=== PATIENT | male | born 1950 | race Caucasian/White ===

== ENCOUNTER 2017-02-28 18:46 | Inpatient (IN) | payer MEDICARE ==
[~2017-02-28] VITALS: Ht 172.7 cm; Wt 72.4 kg
[2017-02-28] MEDS: POTASSIUM CHLORIDE 10 MEQ TABCR PO SCH (00:45)
[2017-02-28] MEDS: NAPROXEN 250 MG TAB PO SCH (03:45)
[~2017-02-28 18:46] MED LIST: AMLODIPINE BESYL5 MG PO; ASPIR 8181 MG PO; CALCIUM500 M1 PO; LASIX40 MG PO; MORPHINE SULFAT15 MG PO; MORPHINE SULFAT30 M2 PO; NAPROXEN250 MG PO; OMEPRAZOLE40 MG PO; POTASSIUM CHLO10 ME1 PO; SPIRIVA18 MCG INH; STOOL SOFTENER50 MG PO; TAMSULOSIN HCL0.4 MG PO; VITAMIN E400 UNI1 PO
[2017-02-28] MEDS ORDERED: ZINC SULFATE220 MG PO (19:31)
[2017-02-28] MEDS ORDERED: CLONIDINE HCL0.2 MG PO (19:31)
[2017-02-28] MEDS ORDERED: VENLAFAXINE HC150 MG PO (19:31)
[2017-02-28] MEDS ORDERED: DOK100 MG PO (19:31)
[2017-02-28] MEDS ORDERED: PROAIR HFA INH8.5 GM INH (19:31)
[2017-02-28] MEDS ORDERED: ASCORBIC ACID500 MG PO (19:31)
[2017-02-28] MEDS ORDERED: ALBUTEROL SULF 0.083% NEB SOLN 3 ML NEB NEB STA (20:01)
[2017-02-28] MEDS ORDERED: IPRATROPIUM BROMIDE 0.02% 2.5 ML NEB NEB ONE (20:15)
[2017-02-28] MEDS ORDERED: METHYLPREDNISOLONE SOD SUCC 125 MG/2ML VIAL IV ONE (20:15)
[2017-02-28 20:19] LABS: BASOPHILS # (AUTO) 0.1 (0.0-0.1); BASOPHILS % 0.3 % (0.0-1.0); EOSINOPHILS # (AUTO) 0.2 (0.0-0.4); EOSINOPHILS % 1.5 % (0.0-6.0); HEMATOCRIT 41.1 % (38.2-49.6); HEMOGLOBIN 13.2 g/dL (14.0-18.0); LYMPHOCYTES # (AUTO) 2.5 (1.0-3.2); LYMPHOCYTES % 15.9 % (18.0-39.1); MEAN CORPUSCULAR HEMOGLOBIN 28.3 pg (28-32); MEAN CORPUSCULAR HGB CONC 32.1 g/dL (31-35); MEAN CORPUSCULAR VOLUME 88.2 fL (81-99); MONOCYTES # (AUTO) 1.2 (0.2-0.8); MONOCYTES % 7.5 % (4.4-11.3); NEUTROPHILS # (AUTO) 11.5 (2.1-6.9); NEUTROPHILS % 73.3 % (38.7-80.0); PLATELET COUNT 341 x10e3/uL (140-360); RED BLOOD COUNT 4.66 x10e6/uL (4.3-5.7); RED CELL DISTRIBUTION WIDTH 18.5 % (11.7-14.4)
[2017-02-28] MEDS: SODIUM CHLORIDE 0.9% 1000ML 1,000 ML IV SCH (20:31)
[2017-02-28 20:38] LABS: ALANINE AMINOTRANSFERASE 35 IU/L (0-55); ALBUMIN 2.9 g/dL (3.5-5.0); ALBUMIN/GLOBULIN RATIO 0.9 (0.8-2.0); ALKALINE PHOSPHATASE 74 IU/L (40-150); ANION GAP 12.7 mmol/L (8-16); BLOOD UREA NITROGEN 18 mg/dL (7-26); BUN/CREATININE RATIO 28 (6-25); CALCIUM 8.4 mg/dL (8.4-10.2); CARBON DIOXIDE 28 mmol/L (22-29); CHLORIDE 104 mmol/L (98-107); CREATININE, SERUM 0.65 mg/dL (0.72-1.25); EST GLOMERULAR FILTRATION RATE > 60 ML/MIN (60-); GLUCOSE 91 mg/dL (74-118); POTASSIUM 3.7 mmol/L (3.5-5.1); SODIUM 141 mmol/L (136-145)
--- NOTE | 2017-02-28 20:38 | Diagnostic Imaging Report ---
EXAMINATION: CHEST SINGLE (PORTABLE) 02/28/2017 7:14 PM COMPARISON: CT of the chest from 06/01/2016 INDICATION: Shortness of breath DISCUSSION: LINES: None. LUNGS: Emphysema. No focal consolidation. The lung nodules described on prior CT are not well visualized. PLEURA: No pleural effusion or pneumothorax. HEART AND MEDIASTINUM: The cardiomediastinal silhouette is unremarkable. BONES AND SOFT TISSUES: Old posttraumatic deformity of the right proximal humerus.. The soft tissues are normal. IMPRESSION: Emphysema. No focal consolidation. The pulmonary nodules described on prior chest CT are not visualized. Please refer to follow-up recommendations in that report. Isaias Howard MD Signed by: Dr. Isaias Howard M.D. on 02/28/2017 8:34 PM
[2017-02-28 20:46] LABS: CREATINE KINASE MB 4.1 ng/mL (0.00-5.00); TROPONIN I 0.012 ng/mL (0-0.300)
[2017-02-28] MEDS ORDERED: SODIUM CHLORIDE FLUSH 10 ML SYR INJ PRN (22:15)
[2017-02-28] MEDS ORDERED: CEFTRIAXONE SOD 1 GM VIAL IV SCH (22:15)
[2017-02-28] MEDS: ALBUTEROL/IPRATROPIUM 3 ML NEB NEB SCH (23:00)
[2017-02-28] MEDS: CEFTRIAXONE SOD 1 GM/NS 50 ML 50 ML IV SCH (23:03)
[2017-02-28] MEDS: AZITHROMYCIN 250 MG TAB PO SCH (23:03)
[2017-03-01] VITALS (7 sets, daily range): BP systolic 111–159; BP diastolic 59–85
[2017-03-01] MEDS: METHYLPREDNISOLONE SOD SUCC 40 MG/ML VIAL IV SCH ×3 (00:19→12:18)
[2017-03-01] MEDS: MORPHINE SULFATE 15MG TAB CR PO SCH (00:19)
[2017-03-01] MEDS: CLONIDINE HCL 0.2 MG TAB PO SCH ×6 (02:00→22:00)
[2017-03-01] MEDS: SODIUM CHLORIDE 0.9% 1000ML 1,000 ML IV SCH ×2 (02:15→22:09)
[2017-03-01] MEDS: ALBUTEROL/IPRATROPIUM 3 ML NEB NEB SCH ×5 (03:00→19:15)
[2017-03-01] MEDS ORDERED: ADVAIR 250-501 EACH (04:28)
[2017-03-01] MEDS ORDERED: PANTOPRAZOLE SO40 MG PO (04:28)
[2017-03-01] MEDS ORDERED: VITAMIN B-1100 M1 PO (04:30)
[2017-03-01] MEDS ORDERED: ANORO ELLIPTA INH (04:37)
[2017-03-01] MEDS: NAPROXEN 250 MG TAB PO SCH ×3 (05:24→21:30)
[2017-03-01 06:05] LABS: BASOPHILS % 0.1 % (0.0-1.0); HEMATOCRIT 34.3 % (38.2-49.6); HEMOGLOBIN 11.2 g/dL (14.0-18.0); LYMPHOCYTES # (AUTO) 0.4 (1.0-3.2); LYMPHOCYTES % 3.6 % (18.0-39.1); MEAN CORPUSCULAR HEMOGLOBIN 28.8 pg (28-32); MEAN CORPUSCULAR HGB CONC 32.7 g/dL (31-35); MEAN CORPUSCULAR VOLUME 88.2 fL (81-99); MONOCYTES % 0.3 % (4.4-11.3); NEUTROPHILS # (AUTO) 11.2 (2.1-6.9); NEUTROPHILS % 94.7 % (38.7-80.0); PLATELET COUNT 301 x10e3/uL (140-360); RED BLOOD COUNT 3.89 x10e6/uL (4.3-5.7); RED CELL DISTRIBUTION WIDTH 18.6 % (11.7-14.4)
[2017-03-01 06:33] LABS: ANION GAP 11.2 mmol/L (8-16); BLOOD UREA NITROGEN 15 mg/dL (7-26); BUN/CREATININE RATIO 23 (6-25); CALCIUM 8.2 mg/dL (8.4-10.2); CARBON DIOXIDE 24 mmol/L (22-29); CHLORIDE 109 mmol/L (98-107); CREATINE KINASE 38 IU/L (30-200); CREATININE, SERUM 0.66 mg/dL (0.72-1.25); EST GLOMERULAR FILTRATION RATE > 60 ML/MIN (60-); GLUCOSE 196 mg/dL (74-118); POTASSIUM 4.2 mmol/L (3.5-5.1); SODIUM 140 mmol/L (136-145)
[2017-03-01 06:45] LABS: TROPONIN I 0.022 ng/mL (0-0.300)
[2017-03-01] MEDS ORDERED: DOCUSATE SODIUM PO SCH (09:00)
[2017-03-01] MEDS: MORPHINE SULFATE 30 MG TAB ER PO PRN ×2 (09:05→23:26)
[2017-03-01] MEDS: FUROSEMIDE 40 MG TAB PO SCH (09:38)
[2017-03-01] MEDS: ASPIRIN 81 MG CHEW TAB PO SCH (09:38)
[2017-03-01] MEDS: VENLAFAXINE HCL 75 MG CAPCR PO SCH (09:38)
[2017-03-01] MEDS: POTASSIUM CHLORIDE 10 MEQ TABCR PO SCH (09:38)
[2017-03-01] MEDS: TAMSULOSIN HCL 0.4 MG CAP PO SCH (09:38)
[2017-03-01] MEDS: DOCUSATE SODIUM 100 MG CAP PO SCH ×2 (09:38→17:10)
[2017-03-01] MEDS: CALCIUM CARBONATE 500 MG CHEWABLE TABS PO SCH (09:39)
[2017-03-01] MEDS: ZINC SULFATE 220 MG CAP PO SCH (09:39)
[2017-03-01] MEDS: ASCORBIC ACID 500 MG TAB PO SCH ×2 (09:39→17:10)
[2017-03-01] MEDS: AMLODIPINE BESYLATE 5 MG TAB PO SCH (09:39)
[2017-03-01] MEDS: PANTOPRAZOLE SOD 40 MG TABEC PO SCH (09:39)
[2017-03-01 16:15] LABS: CREATINE KINASE MB 4.6 ng/mL (0.00-5.00); TROPONIN I 0.02 ng/mL (0-0.300)
--- NOTE | 2017-03-01 16:29 | History and Physical ---
HISTORY OF PRESENT ILLNESS: A patient of Dr. Huerta. A charming but unfortunate 67-year-old gentleman admitted with shortness of breath. History of multiple falls. History of hip replacement, shoulder surgery a year ago. Lives alone. Has chronic back pain. Does have some home health, says it is so far inadequate. FAMILY HISTORY: Positive for cancer of the breast. SOCIAL HISTORY: Smoked and drank in the past. Drugs in the past. PAST MEDICAL HISTORY: History of hepatitis and cirrhosis. ALLERGIES: NO KNOWN ALLERGIES. MEDICATIONS: His medications at home include ProAir, amlodipine, vitamin C, aspirin, calcium carbonate, clonidine, Colace, Advair, Lasix, warfarin, Naprosyn, Prilosec, Protonix, potassium, Flomax, thiamine, Spiriva, venlafaxine, vitamin E, zinc and Anoro. PHYSICAL EXAMINATION: GENERAL: He is currently in no acute distress, looks somewhat older than his stated age, with a history of being born in [place], [place]. VITAL SIGNS: Temperature 98.6, pulse 91, respirations 19, blood pressure 121/51. HEAD: Normocephalic, atraumatic. EYES: Extraocular movements intact. LUNGS: Diminished breath sounds. Barrel chest. BACK: Complaining of back pain. HEART: Regular rhythm. ABDOMEN: Nontender. EXTREMITIES: Nonedematous. IMPRESSION: One of 1. History of pulmonary nodules. 2. Cirrhosis. 3. Chronic obstructive pulmonary disease. 4. Scoliosis. 5. Chronic pain. PLAN: Mobilization. Therapy of acute exacerbation of COPD. Followup CT scan in view of his nodules, which were discovered approximately 6 months ago. Patient does have home oxygen. Thank you for this kind referral. Job#: [id number] EV
[2017-03-01] MEDS ORDERED: METHYLPREDNISOLONE SOD SUCC 40 MG/ML VIAL IV SCH (21:00)
[2017-03-01] MEDS: TIOTROPIUM 18 MCG INH POWDER INH SCH (21:00)
[2017-03-01] MEDS: HEPARIN SOD (PORCINE) 5,000 UNIT/ML VIAL SC SCH (21:30)
[2017-03-01] MEDS: AZITHROMYCIN 250 MG TAB PO SCH (22:10)
[2017-03-01] MEDS: CEFTRIAXONE SOD 1 GM/NS 50 ML 50 ML IV SCH (23:10)
[2017-03-02] VITALS: BP 137/69
[2017-03-02] MEDS: ALBUTEROL/IPRATROPIUM 3 ML NEB NEB SCH ×7 (00:17→19:08)
[2017-03-02] MEDS: CLONIDINE HCL 0.2 MG TAB PO SCH ×6 (02:00→22:00)
[2017-03-02] MEDS: SODIUM CHLORIDE 0.9% 1000ML 1,000 ML IV SCH ×2 (02:15→16:12)
[2017-03-02 04:00] VITALS: BP 134/73
[2017-03-02] MEDS: MORPHINE SULFATE 15MG TAB CR PO SCH ×6 (05:38→18:20)
[2017-03-02] MEDS: NAPROXEN 250 MG TAB PO SCH ×3 (05:50→21:25)
[2017-03-02 06:04] LABS: BASOPHILS % 0.1 % (0.0-1.0); HEMATOCRIT 32.1 % (38.2-49.6); HEMOGLOBIN 10.5 g/dL (14.0-18.0); LYMPHOCYTES # (AUTO) 0.8 (1.0-3.2); LYMPHOCYTES % 3.7 % (18.0-39.1); MEAN CORPUSCULAR HEMOGLOBIN 28.8 pg (28-32); MEAN CORPUSCULAR HGB CONC 32.7 g/dL (31-35); MEAN CORPUSCULAR VOLUME 88.2 fL (81-99); MONOCYTES # (AUTO) 0.8 (0.2-0.8); MONOCYTES % 3.8 % (4.4-11.3); NEUTROPHILS # (AUTO) 18.4 (2.1-6.9); NEUTROPHILS % 91.4 % (38.7-80.0); PLATELET COUNT 294 x10e3/uL (140-360); RED BLOOD COUNT 3.64 x10e6/uL (4.3-5.7); RED CELL DISTRIBUTION WIDTH 18.9 % (11.7-14.4)
[2017-03-02 06:31] LABS: ANION GAP 8.9 mmol/L (8-16); BLOOD UREA NITROGEN 18 mg/dL (7-26); BUN/CREATININE RATIO 30 (6-25); CALCIUM 8.1 mg/dL (8.4-10.2); CARBON DIOXIDE 28 mmol/L (22-29); CHLORIDE 108 mmol/L (98-107); CREATININE, SERUM 0.61 mg/dL (0.72-1.25); EST GLOMERULAR FILTRATION RATE > 60 ML/MIN (60-); GLUCOSE 144 mg/dL (74-118); POTASSIUM 3.9 mmol/L (3.5-5.1); SODIUM 141 mmol/L (136-145)
--- NOTE | 2017-03-02 07:27 | Diagnostic Imaging Report ---
CT scan chest. March 02, 2017 Clinical history: Pulmonary nodules Technique: Routine volumetric CT chest. No intravenous or enteric contrast. Coronal, sagittal and axial images generated from source data. Dose: 549.57 mGy-cm Comparison: June 01, 2016 Findings: Lungs: Severe centrilobular emphysema worse in the upper lung zones. No focal airspace disease. A round 1.8 x 1.8 cm nodular opacity at the apical aspect of the left lower lobe on the study from May 31, 2016 has decreased in size and changed morphology. It now measures 1.3 x 0.7 cm, with decreased nodular appearance (image 51, series 3). No cavitation. Pulmonary nodules: Multiple subcentimeter pulmonary nodules bilaterally, all stable in size and morphology. [place] nodules: Right upper lobe 7 mm (image 30, series 3), apical right lower lobe (image 51, series 3), left upper lobe 7.5 mm (image 32, series 3). Airways: Diffuse bronchial wall thickening with lower lobe cylindrical bronchiectasis. No filling defects. Pleura: Normal Lymph nodes: Normal subcentimeter mediastinal. Pulmonary arteries: Normal caliber. Main pulmonary artery diameter 3.2 cm. Thoracic aorta and great vessels: Mild atherosclerosis; normal caliber. Tortuous descending thoracic aorta. Heart and pericardium: Normal size. No pericardial effusion. Severe left, left anterior descending, circumflex and right coronary artery calcification. Subdiaphragmatic organs: Imaged portions are unremarkable. Skeleton: C6-C7, C7-T1, and T1-T2 degenerative disc disease. Intact. Soft tissues: Tiny ventral abdominal wall hernia (image 126, series 2. Otherwise, normal. Impression: 1. Nodular apical left lower lobe airspace disease from June 01, 2016 has improved in size and morphology, previously measuring 2 cm and now measuring 1.3 cm with an appearance suggesting developing scar. Findings are most in keeping with resolving infection. 2. Multiple stable subcentimeter pulmonary nodules for which continued follow-up is recommended. Consider follow-up CT in one year. 3. Severe emphysema with associated bronchial wall thickening and mild bronchiectasis. This report was generated with voice-recognition technology. Errors in research hydrologist can occur. Please interpret accordingly and contact a radiologist if there are any questions regarding the report. Signed by: Dr. Justus Agrawal M.D. on 03/02/2017 7:23 AM
[2017-03-02 08:14] VITALS: BP 160/83
[2017-03-02] MEDS: METHYLPREDNISOLONE SOD SUCC 40 MG/ML VIAL IV SCH ×3 (09:00→21:25)
[2017-03-02] MEDS: TIOTROPIUM 18 MCG INH POWDER INH SCH (09:33)
[2017-03-02] MEDS: TAMSULOSIN HCL 0.4 MG CAP PO SCH (10:10)
[2017-03-02] MEDS: DOCUSATE SODIUM 100 MG CAP PO SCH ×2 (10:10→16:39)
[2017-03-02] MEDS: AMLODIPINE BESYLATE 5 MG TAB PO SCH (10:10)
[2017-03-02] MEDS: ASPIRIN 81 MG CHEW TAB PO SCH (10:10)
[2017-03-02] MEDS: FUROSEMIDE 40 MG TAB PO SCH (10:10)
[2017-03-02] MEDS: ASCORBIC ACID 500 MG TAB PO SCH ×2 (10:10→16:39)
[2017-03-02] MEDS: POTASSIUM CHLORIDE 10 MEQ TABCR PO SCH (10:10)
[2017-03-02] MEDS: VENLAFAXINE HCL 75 MG CAPCR PO SCH (10:10)
[2017-03-02] MEDS: CALCIUM CARBONATE 500 MG CHEWABLE TABS PO SCH (10:10)
[2017-03-02] MEDS: ZINC SULFATE 220 MG CAP PO SCH (10:10)
[2017-03-02] MEDS: PANTOPRAZOLE SOD 40 MG TABEC PO SCH (10:10)
[2017-03-02] MEDS: HEPARIN SOD (PORCINE) 5,000 UNIT/ML VIAL SC SCH ×2 (10:10→21:25)
[2017-03-02 11:58] VITALS: BP 166/89
[2017-03-02] MEDS: TRAMADOL HCL 50 MG TAB PO PRN (14:57)
[2017-03-02 16:19] VITALS: BP 129/72
[2017-03-02 19:54] VITALS: BP 118/74
[2017-03-02] MEDS: AZITHROMYCIN 250 MG TAB PO SCH (21:25)
[2017-03-02] MEDS: CEFTRIAXONE SOD 1 GM/NS 50 ML 50 ML IV SCH (23:00)
[2017-03-03 00:30] VITALS: BP 106/69
[2017-03-03] MEDS: CLONIDINE HCL 0.2 MG TAB PO SCH ×6 (02:00→21:34)
[2017-03-03] MEDS: MORPHINE SULFATE 15MG TAB CR PO SCH ×4 (02:21→17:21)
[2017-03-03] MEDS: ALBUTEROL/IPRATROPIUM 3 ML NEB NEB SCH ×6 (03:21→23:20)
[2017-03-03] MEDS: NAPROXEN 250 MG TAB PO SCH ×3 (05:32→21:34)
[2017-03-03 05:48] VITALS: BP 122/72
[2017-03-03 06:07] LABS: BASOPHILS % 0.1 % (0.0-1.0); HEMATOCRIT 33.4 % (38.2-49.6); HEMOGLOBIN 10.8 g/dL (14.0-18.0); LYMPHOCYTES # (AUTO) 0.6 (1.0-3.2); LYMPHOCYTES % 4.7 % (18.0-39.1); MEAN CORPUSCULAR HEMOGLOBIN 28.6 pg (28-32); MEAN CORPUSCULAR HGB CONC 32.3 g/dL (31-35); MEAN CORPUSCULAR VOLUME 88.6 fL (81-99); MONOCYTES # (AUTO) 0.5 (0.2-0.8); MONOCYTES % 3.9 % (4.4-11.3); NEUTROPHILS # (AUTO) 12.2 (2.1-6.9); NEUTROPHILS % 90.5 % (38.7-80.0); PLATELET COUNT 276 x10e3/uL (140-360); RED BLOOD COUNT 3.77 x10e6/uL (4.3-5.7)
[2017-03-03 06:35] LABS: ANION GAP 9.9 mmol/L (8-16); BLOOD UREA NITROGEN 16 mg/dL (7-26); BUN/CREATININE RATIO 28 (6-25); CALCIUM 8.2 mg/dL (8.4-10.2); CARBON DIOXIDE 31 mmol/L (22-29); CHLORIDE 103 mmol/L (98-107); CREATININE, SERUM 0.58 mg/dL (0.72-1.25); EST GLOMERULAR FILTRATION RATE > 60 ML/MIN (60-); GLUCOSE 134 mg/dL (74-118); POTASSIUM 3.9 mmol/L (3.5-5.1); SODIUM 140 mmol/L (136-145)
[2017-03-03] MEDS: TIOTROPIUM 18 MCG INH POWDER INH SCH (08:00)
[2017-03-03 08:30] VITALS: BP 152/80
[2017-03-03] MEDS: TAMSULOSIN HCL 0.4 MG CAP PO SCH (09:47)
[2017-03-03] MEDS: ZINC SULFATE 220 MG CAP PO SCH (09:47)
[2017-03-03] MEDS: PANTOPRAZOLE SOD 40 MG TABEC PO SCH (09:47)
[2017-03-03] MEDS: AMLODIPINE BESYLATE 5 MG TAB PO SCH (09:47)
[2017-03-03] MEDS: FUROSEMIDE 40 MG TAB PO SCH (09:47)
[2017-03-03] MEDS: ASPIRIN 81 MG CHEW TAB PO SCH (09:47)
[2017-03-03] MEDS: ASCORBIC ACID 500 MG TAB PO SCH ×2 (09:47→17:21)
[2017-03-03] MEDS: VENLAFAXINE HCL 75 MG CAPCR PO SCH (09:48)
[2017-03-03] MEDS: HEPARIN SOD (PORCINE) 5,000 UNIT/ML VIAL SC SCH ×2 (09:48→21:34)
[2017-03-03] MEDS: DOCUSATE SODIUM 100 MG CAP PO SCH ×2 (09:48→17:21)
[2017-03-03] MEDS: POTASSIUM CHLORIDE 10 MEQ TABCR PO SCH (09:48)
[2017-03-03] MEDS: CALCIUM CARBONATE 500 MG CHEWABLE TABS PO SCH (09:48)
[2017-03-03] MEDS: TRAMADOL HCL 50 MG TAB PO PRN (09:48)
[2017-03-03] MEDS: METHYLPREDNISOLONE SOD SUCC 40 MG/ML VIAL IV SCH ×2 (10:26→21:34)
[2017-03-03] MEDS: SODIUM CHLORIDE 0.9% 1000ML 1,000 ML IV SCH (11:30)
[2017-03-03 12:49] VITALS: BP 141/90
[2017-03-03] MEDS: HYDROCODONE/APAP 10MG-325MG TAB PO PRN ×2 (13:59→21:35)
[2017-03-03 16:09] VITALS: BP 121/68
[2017-03-03 20:00] VITALS: BP 134/81
[2017-03-03] MEDS: AZITHROMYCIN 250 MG TAB PO SCH (21:34)
[2017-03-03] MEDS: CEFTRIAXONE SOD 1 GM/NS 50 ML 50 ML IV SCH (22:49)
[2017-03-04] MEDS: MORPHINE SULFATE 15MG TAB CR PO SCH ×4 (00:35→18:52)
[2017-03-04 00:36] VITALS: BP 113/75
[2017-03-04] MEDS: CLONIDINE HCL 0.2 MG TAB PO SCH ×6 (02:00→22:00)
[2017-03-04] MEDS: ALBUTEROL/IPRATROPIUM 3 ML NEB NEB SCH ×6 (03:05→23:17)
[2017-03-04 04:00] VITALS: BP 138/88
[2017-03-04] MEDS: NAPROXEN 250 MG TAB PO SCH ×3 (05:56→22:16)
[2017-03-04] MEDS: TIOTROPIUM 18 MCG INH POWDER INH SCH (06:48)
[2017-03-04] MEDS: SODIUM CHLORIDE 0.9% 1000ML 1,000 ML IV SCH (07:50)
[2017-03-04 08:00] VITALS: BP 120/63
[2017-03-04] MEDS: ASPIRIN 81 MG CHEW TAB PO SCH (09:17)
[2017-03-04] MEDS: ZINC SULFATE 220 MG CAP PO SCH (09:17)
[2017-03-04] MEDS: TAMSULOSIN HCL 0.4 MG CAP PO SCH (09:17)
[2017-03-04] MEDS: FUROSEMIDE 40 MG TAB PO SCH (09:17)
[2017-03-04] MEDS: CALCIUM CARBONATE 500 MG CHEWABLE TABS PO SCH (09:17)
[2017-03-04] MEDS: HEPARIN SOD (PORCINE) 5,000 UNIT/ML VIAL SC SCH ×2 (09:17→22:27)
[2017-03-04] MEDS: AMLODIPINE BESYLATE 5 MG TAB PO SCH (09:17)
[2017-03-04] MEDS: PANTOPRAZOLE SOD 40 MG TABEC PO SCH (09:17)
[2017-03-04] MEDS: POTASSIUM CHLORIDE 10 MEQ TABCR PO SCH (09:17)
[2017-03-04] MEDS: ASCORBIC ACID 500 MG TAB PO SCH ×2 (09:17→17:06)
[2017-03-04] MEDS: VENLAFAXINE HCL 75 MG CAPCR PO SCH (09:17)
[2017-03-04] MEDS: DOCUSATE SODIUM 100 MG CAP PO SCH ×2 (09:17→17:06)
[2017-03-04] MEDS: METHYLPREDNISOLONE SOD SUCC 40 MG/ML VIAL IV SCH ×2 (09:17→22:15)
[2017-03-04 12:00] VITALS: BP 144/71
[2017-03-04 16:00] VITALS: BP 128/64
[2017-03-04 20:00] VITALS: BP 117/62
[2017-03-04] MEDS: MIRTAZAPINE 15 MG TAB PO SCH (22:15)
[2017-03-04] MEDS: CEFTRIAXONE SOD 1 GM/NS 50 ML 50 ML IV SCH (22:16)
[2017-03-04] MEDS: AZITHROMYCIN 250 MG TAB PO SCH (22:16)
[2017-03-05] VITALS: BP 113/61
[2017-03-05] MEDS: ALBUTEROL/IPRATROPIUM 3 ML NEB NEB SCH ×6 (00:15→20:00)
[2017-03-05] MEDS: CLONIDINE HCL 0.2 MG TAB PO SCH ×6 (02:00→21:41)
[2017-03-05 04:00] VITALS: BP 102/51
[2017-03-05] MEDS: SODIUM CHLORIDE 0.9% 1000ML 1,000 ML IV SCH ×2 (05:04→13:33)
[2017-03-05] MEDS: MORPHINE SULFATE 15MG TAB CR PO SCH ×4 (05:39→18:15)
[2017-03-05] MEDS: NAPROXEN 250 MG TAB PO SCH ×3 (05:40→21:41)
[2017-03-05 08:00] VITALS: BP 127/89
[2017-03-05] MEDS: HEPARIN SOD (PORCINE) 5,000 UNIT/ML VIAL SC SCH ×2 (09:00→21:41)
[2017-03-05] MEDS: FUROSEMIDE 40 MG TAB PO SCH (09:05)
[2017-03-05] MEDS: PANTOPRAZOLE SOD 40 MG TABEC PO SCH (09:05)
[2017-03-05] MEDS: ZINC SULFATE 220 MG CAP PO SCH (09:05)
[2017-03-05] MEDS: ASCORBIC ACID 500 MG TAB PO SCH ×2 (09:05→17:00)
[2017-03-05] MEDS: CALCIUM CARBONATE 500 MG CHEWABLE TABS PO SCH (09:05)
[2017-03-05] MEDS: METHYLPREDNISOLONE SOD SUCC 40 MG/ML VIAL IV SCH ×2 (09:05→21:41)
[2017-03-05] MEDS: DOCUSATE SODIUM 100 MG CAP PO SCH ×2 (09:05→17:00)
[2017-03-05] MEDS: VENLAFAXINE HCL 75 MG CAPCR PO SCH (09:05)
[2017-03-05] MEDS: ASPIRIN 81 MG CHEW TAB PO SCH (09:05)
[2017-03-05] MEDS: TAMSULOSIN HCL 0.4 MG CAP PO SCH (09:05)
[2017-03-05] MEDS: AMLODIPINE BESYLATE 5 MG TAB PO SCH (09:05)
[2017-03-05] MEDS: POTASSIUM CHLORIDE 10 MEQ TABCR PO SCH (09:06)
[2017-03-05 12:00] VITALS: BP 139/83
[2017-03-05] MEDS: LIDOCAINE 5% PATCH TP SCH (15:14)
[2017-03-05 16:00] VITALS: BP 135/78
[2017-03-05 20:00] VITALS: BP 121/58
[2017-03-05] MEDS: AZITHROMYCIN 250 MG TAB PO SCH (21:41)
[2017-03-05] MEDS: MIRTAZAPINE 15 MG TAB PO SCH (21:41)
[2017-03-05] MEDS: TIOTROPIUM 18 MCG INH POWDER INH SCH (22:30)
[2017-03-06] VITALS: BP 134/65
[2017-03-06] MEDS: CEFTRIAXONE SOD 1 GM/NS 50 ML 50 ML IV SCH ×2 (00:19→23:15)
[2017-03-06] MEDS: MORPHINE SULFATE 15MG TAB CR PO SCH ×4 (00:21→18:15)
[2017-03-06] MEDS: CLONIDINE HCL 0.2 MG TAB PO SCH ×6 (02:48→23:15)
[2017-03-06 04:00] VITALS: BP 140/69
[2017-03-06] MEDS: NAPROXEN 250 MG TAB PO SCH ×3 (05:32→23:15)
[2017-03-06 08:00] VITALS: BP 145/95
[2017-03-06] MEDS: ALBUTEROL/IPRATROPIUM 3 ML NEB NEB SCH ×7 (08:00→23:45)
[2017-03-06 08:31] LABS: BASOPHILS % 0.1 % (0.0-1.0); EOSINOPHILS # (AUTO) 0.1 (0.0-0.4); EOSINOPHILS % 0.6 % (0.0-6.0); HEMATOCRIT 34.3 % (38.2-49.6); HEMOGLOBIN 11.1 g/dL (14.0-18.0); LYMPHOCYTES # (AUTO) 0.9 (1.0-3.2); LYMPHOCYTES % 9.2 % (18.0-39.1); MEAN CORPUSCULAR HEMOGLOBIN 28.8 pg (28-32); MEAN CORPUSCULAR HGB CONC 32.4 g/dL (31-35); MEAN CORPUSCULAR VOLUME 88.9 fL (81-99); MONOCYTES # (AUTO) 0.6 (0.2-0.8); MONOCYTES % 5.8 % (4.4-11.3); NEUTROPHILS # (AUTO) 8.2 (2.1-6.9); NEUTROPHILS % 82.4 % (38.7-80.0); PLATELET COUNT 235 x10e3/uL (140-360); RED BLOOD COUNT 3.86 x10e6/uL (4.3-5.7); RED CELL DISTRIBUTION WIDTH 19.4 % (11.7-14.4)
[2017-03-06] MEDS: METHYLPREDNISOLONE SOD SUCC 40 MG/ML VIAL IV SCH ×2 (08:42→23:15)
[2017-03-06] MEDS: CALCIUM CARBONATE 500 MG CHEWABLE TABS PO SCH (08:43)
[2017-03-06] MEDS: AMLODIPINE BESYLATE 5 MG TAB PO SCH (08:43)
[2017-03-06] MEDS: ASCORBIC ACID 500 MG TAB PO SCH ×2 (08:43→17:30)
[2017-03-06] MEDS: VENLAFAXINE HCL 75 MG CAPCR PO SCH (08:43)
[2017-03-06] MEDS: ZINC SULFATE 220 MG CAP PO SCH (08:43)
[2017-03-06] MEDS: ASPIRIN 81 MG CHEW TAB PO SCH (08:43)
[2017-03-06] MEDS: DOCUSATE SODIUM 100 MG CAP PO SCH ×2 (08:43→17:30)
[2017-03-06] MEDS: FUROSEMIDE 40 MG TAB PO SCH (08:43)
[2017-03-06] MEDS: PANTOPRAZOLE SOD 40 MG TABEC PO SCH (08:43)
[2017-03-06] MEDS: TAMSULOSIN HCL 0.4 MG CAP PO SCH (08:43)
[2017-03-06] MEDS: POTASSIUM CHLORIDE 10 MEQ TABCR PO SCH (08:44)
[2017-03-06] MEDS: HEPARIN SOD (PORCINE) 5,000 UNIT/ML VIAL SC SCH ×2 (08:44→23:15)
--- NOTE | 2017-03-06 08:56 | Consultation ---
DATE OF CONSULTATION: March 04, 2017 PSYCHIATRIC CONSULTATION REASON FOR CONSULTATION: To evaluate patient's mood. HISTORY OF PRESENTING ILLNESS: The patient is a 67-year-old male admitted to the hospital for COPD. Psychiatric consultation is called to evaluate patient's mood. As per the medical record, patient was taken to the hospital for shortness of breath and history of multiple falls. Upon evaluation today, patient is found to be in the bed. He is alert, awake and oriented to situation. He is depressed and anxious due to his medical issues. Patient admits to feeling hopeless and helpless. He denies any suicidal ideation. He denies any hallucination. He complains of poor sleep but denies any appetite problem. He does not elicit paranoid or delusional thinking. PAST PSYCHIATRIC HISTORY: Patient reports that he is taking medication for anxiety in the past but denies any past psychiatric history. He has never attempted suicide. He denies alcohol or drug use. FAMILY HISTORY: Patient denies any family history of psychiatric illness. SOCIAL HISTORY: Patient says he lives alone MENTAL STATUS EXAMINATION: The patient is an elderly male. He is alert, awake and oriented to situation. His mood is anxious and depressed. Affect is congruent with mood. Thought process is concrete. He does not elicit paranoid or delusional thinking. Insight and judgment are fair. CURRENT MEDICATION 1. Zinc sulfate. 2. Flomax. 3. Potassium chloride. 4. Pantoprazole. 5. Furosemide. 6. Aspirin. 7. Ascorbic acid. 8. Amlodipine. 9. Spiriva. 10. Ceftriaxone. 11. Acetaminophen/hydrocodone. 12. Erythromycin. 13. Tramadol. 14. Morphine. 15. Sodium chloride. CURRENT LAB: WBC is 13.47, RBC 3.77, hemoglobin 10.8, hematocrit is 33.4, platelet 276. Sodium 140, potassium 3.9, chloride 103, CO2 31, BUN 16. ASSESSMENT: Major depressive disorder, single episode, moderate; rule out mild cognitive disorder. PLAN 1. Add Remeron 15 mg p.o. nightly. 2. Add Ativan 0.5 mg p.o. q.6 h. p.r.n. 3. Supportive therapy. Thank you for this consultation. Dictated by: NASRA Johnson Job#: [id number] EV
[2017-03-06 09:10] LABS: ALANINE AMINOTRANSFERASE 24 IU/L (0-55); ALBUMIN 2.8 g/dL (3.5-5.0); ALBUMIN/GLOBULIN RATIO 1.1 (0.8-2.0); ALKALINE PHOSPHATASE 68 IU/L (40-150); ANION GAP 9.2 mmol/L (8-16); BLOOD UREA NITROGEN 14 mg/dL (7-26); BUN/CREATININE RATIO 23 (6-25); CALCIUM 8.6 mg/dL (8.4-10.2); CARBON DIOXIDE 33 mmol/L (22-29); CHLORIDE 102 mmol/L (98-107); CREATININE, SERUM 0.62 mg/dL (0.72-1.25); EST GLOMERULAR FILTRATION RATE > 60 ML/MIN (60-); GLUCOSE 129 mg/dL (74-118); POTASSIUM 4.2 mmol/L (3.5-5.1); SODIUM 140 mmol/L (136-145)
[2017-03-06 12:00] VITALS: BP 123/82
[2017-03-06] MEDS: LIDOCAINE 5% PATCH TP SCH (12:37)
[2017-03-06 16:00] VITALS: BP 126/81
[2017-03-06] MEDS: SODIUM CHLORIDE 0.9% 1000ML 1,000 ML IV SCH (19:50)
[2017-03-06 20:00] VITALS: BP 105/67
[2017-03-06] MEDS: MIRTAZAPINE 15 MG TAB PO SCH (23:15)
[2017-03-06] MEDS: AZITHROMYCIN 250 MG TAB PO SCH (23:15)
[2017-03-07] VITALS (7 sets, daily range): BP systolic 102–140; BP diastolic 59–86
[2017-03-07] MEDS: MORPHINE SULFATE 15MG TAB CR PO SCH ×5 (01:15→17:36)
[2017-03-07] MEDS: TIOTROPIUM 18 MCG INH POWDER INH SCH ×3 (01:39→22:20)
[2017-03-07] MEDS: CLONIDINE HCL 0.2 MG TAB PO SCH ×6 (02:00→22:00)
--- NOTE | 2017-03-07 05:14 | Pulmonary Function Test ---
DATE OF STUDY: SPIROMETRY Forced vital capacity 0.97 L, 23% of predicted. FEV1 0.53 L, 17%. FEV1/FVC ratio 55%. FEF25/75, 13%. Consistent with very severe obstructive pulmonary disease. There is no significant improvement following inhalation of bronchodilators. Concomitant restriction cannot be excluded. Job#: [id number] GE
[2017-03-07] MEDS: NAPROXEN 250 MG TAB PO SCH ×4 (05:48→22:20)
[2017-03-07] MEDS: ALBUTEROL/IPRATROPIUM 3 ML NEB NEB SCH ×5 (07:30→22:54)
[2017-03-07] MEDS: ASPIRIN 81 MG CHEW TAB PO SCH (09:22)
[2017-03-07] MEDS: VENLAFAXINE HCL 75 MG CAPCR PO SCH (09:22)
[2017-03-07] MEDS: POTASSIUM CHLORIDE 10 MEQ TABCR PO SCH (09:22)
[2017-03-07] MEDS: METHYLPREDNISOLONE SOD SUCC 40 MG/ML VIAL IV SCH (09:22)
[2017-03-07] MEDS: TAMSULOSIN HCL 0.4 MG CAP PO SCH (09:22)
[2017-03-07] MEDS: ASCORBIC ACID 500 MG TAB PO SCH ×2 (09:22→17:36)
[2017-03-07] MEDS: FUROSEMIDE 40 MG TAB PO SCH (09:22)
[2017-03-07] MEDS: CALCIUM CARBONATE 500 MG CHEWABLE TABS PO SCH (09:22)
[2017-03-07] MEDS: PANTOPRAZOLE SOD 40 MG TABEC PO SCH (09:22)
[2017-03-07] MEDS: AMLODIPINE BESYLATE 5 MG TAB PO SCH (09:22)
[2017-03-07] MEDS: ZINC SULFATE 220 MG CAP PO SCH (09:22)
[2017-03-07] MEDS: HEPARIN SOD (PORCINE) 5,000 UNIT/ML VIAL SC SCH ×2 (09:22→22:20)
[2017-03-07] MEDS: DOCUSATE SODIUM 100 MG CAP PO SCH ×2 (09:22→17:36)
[2017-03-07] MEDS: LIDOCAINE 5% PATCH TP SCH (12:17)
[2017-03-07] MEDS: SODIUM CHLORIDE 0.9% 1000ML 1,000 ML IV SCH (13:57)
[2017-03-07] MEDS: AZITHROMYCIN 250 MG TAB PO SCH ×2 (21:43→22:20)
[2017-03-07] MEDS: MIRTAZAPINE 15 MG TAB PO SCH ×2 (21:43→22:20)
[2017-03-07] MEDS: CEFTRIAXONE SOD 1 GM/NS 50 ML 50 ML IV SCH (22:32)
[2017-03-07] MEDS: LORAZEPAM 0.5 MG TAB PO PRN (22:59)
[2017-03-08] VITALS: BP 118/73
[2017-03-08] MEDS: MORPHINE SULFATE 15MG TAB CR PO SCH ×4 (00:39→19:25)
[2017-03-08] MEDS: CLONIDINE HCL 0.2 MG TAB PO SCH ×6 (02:00→21:17)
[2017-03-08] MEDS: ALBUTEROL/IPRATROPIUM 3 ML NEB NEB SCH ×5 (04:05→20:30)
[2017-03-08 04:50] VITALS: BP 143/81
[2017-03-08] MEDS: NAPROXEN 250 MG TAB PO SCH ×3 (06:23→21:17)
[2017-03-08] MEDS: HYDROCODONE/APAP 10MG-325MG TAB PO PRN (09:10)
[2017-03-08] MEDS: METHYLPREDNISOLONE SOD SUCC 40 MG/ML VIAL IV SCH (09:21)
[2017-03-08] MEDS: VENLAFAXINE HCL 75 MG CAPCR PO SCH (09:21)
[2017-03-08] MEDS: DOCUSATE SODIUM 100 MG CAP PO SCH ×2 (09:21→16:59)
[2017-03-08] MEDS: ASPIRIN 81 MG CHEW TAB PO SCH (09:21)
[2017-03-08 09:24] VITALS: BP 136/83
[2017-03-08] MEDS: AMLODIPINE BESYLATE 5 MG TAB PO SCH (09:24)
[2017-03-08] MEDS: PANTOPRAZOLE SOD 40 MG TABEC PO SCH (09:24)
[2017-03-08] MEDS: CALCIUM CARBONATE 500 MG CHEWABLE TABS PO SCH (09:24)
[2017-03-08] MEDS: ASCORBIC ACID 500 MG TAB PO SCH ×2 (09:24→16:59)
[2017-03-08] MEDS: ZINC SULFATE 220 MG CAP PO SCH (09:24)
[2017-03-08] MEDS: TAMSULOSIN HCL 0.4 MG CAP PO SCH (09:24)
[2017-03-08] MEDS: FUROSEMIDE 40 MG TAB PO SCH (09:24)
[2017-03-08] MEDS: HEPARIN SOD (PORCINE) 5,000 UNIT/ML VIAL SC SCH ×2 (09:25→21:16)
[2017-03-08] MEDS: POTASSIUM CHLORIDE 10 MEQ TABCR PO SCH (09:26)
[2017-03-08 12:16] VITALS: BP 140/82
[2017-03-08] MEDS: LIDOCAINE 5% PATCH TP SCH (13:02)
[2017-03-08] MEDS: TRAMADOL HCL 50 MG TAB PO PRN (14:32)
--- NOTE | 2017-03-08 15:58 | Discharge Summary ---
FINAL DIAGNOSES 1. Very severe chronic obstructive pulmonary disease. 2. Chronic obstructive pulmonary disease exacerbation. 3. Chronic back pain. 4. Hypertension. 5. Scoliosis. 6. Chronic back pain. ADMISSION HISTORY AND HOSPITAL COURSE: Mr. Bocanegra is a 67-year-old male who presented with worsening shortness of breath. PFT showed the patient has severe COPD. He was in severe COPD exacerbation. Patient was started on IV Solu-Medrol and IV antibiotics, and started feeling better. He has chronic back pain. Dr. Gonsalez was consulted for chronic back pain. Pain medications were adjusted. He has improved, and he is back to baseline. He is on home oxygen. Patient will be discharged with home health. Discharge planning is in progress. I have reviewed the medications. AMY FLANNERY MD Job#: [id number] [place]
[2017-03-08 16:24] VITALS: BP 127/72
[2017-03-08 20:17] VITALS: BP 138/75
[2017-03-08] MEDS: TIOTROPIUM 18 MCG INH POWDER INH SCH (21:00)
[2017-03-08] MEDS: MIRTAZAPINE 15 MG TAB PO SCH (21:16)
[2017-03-08] MEDS: LORAZEPAM 0.5 MG TAB PO PRN (21:23)
[2017-03-08] MEDS: CEFTRIAXONE SOD 1 GM/NS 50 ML 50 ML IV SCH (23:00)
[2017-03-09] MEDS: MORPHINE SULFATE 15MG TAB CR PO SCH ×3 (00:05→20:41)
[2017-03-09 00:25] VITALS: BP 120/69
[2017-03-09] MEDS: CEFTRIAXONE SOD 1 GM/NS 50 ML 50 ML IV SCH ×2 (00:54→22:18)
[2017-03-09] MEDS: ALBUTEROL/IPRATROPIUM 3 ML NEB NEB SCH ×6 (01:00→23:55)
[2017-03-09] MEDS: HYDROCODONE/APAP 10MG-325MG TAB PO PRN (01:27)
[2017-03-09] MEDS: CLONIDINE HCL 0.2 MG TAB PO SCH ×3 (01:27→21:13)
[2017-03-09 05:09] VITALS: BP 108/56
[2017-03-09] MEDS: NAPROXEN 250 MG TAB PO SCH ×2 (06:00→21:11)
[2017-03-09] MEDS: METHYLPREDNISOLONE SOD SUCC 40 MG/ML VIAL IV SCH (07:30)
[2017-03-09 08:00] VITALS: BP 121/73
[2017-03-09] MEDS: ASPIRIN 81 MG CHEW TAB PO SCH (09:00)
[2017-03-09] MEDS: FUROSEMIDE 40 MG TAB PO SCH (09:00)
[2017-03-09] MEDS: ZINC SULFATE 220 MG CAP PO SCH (09:00)
[2017-03-09] MEDS: AMLODIPINE BESYLATE 5 MG TAB PO SCH (09:00)
[2017-03-09] MEDS: VENLAFAXINE HCL 75 MG CAPCR PO SCH (09:00)
[2017-03-09] MEDS: TAMSULOSIN HCL 0.4 MG CAP PO SCH (09:00)
[2017-03-09] MEDS: HEPARIN SOD (PORCINE) 5,000 UNIT/ML VIAL SC SCH ×3 (09:00→21:00)
[2017-03-09] MEDS: DOCUSATE SODIUM 100 MG CAP PO SCH ×2 (09:00→17:00)
[2017-03-09] MEDS: PANTOPRAZOLE SOD 40 MG TABEC PO SCH (09:00)
[2017-03-09] MEDS: POTASSIUM CHLORIDE 10 MEQ TABCR PO SCH (09:00)
[2017-03-09] MEDS: ASCORBIC ACID 500 MG TAB PO SCH ×2 (09:00→17:00)
[2017-03-09] MEDS: CALCIUM CARBONATE 500 MG CHEWABLE TABS PO SCH (09:00)
[2017-03-09 12:00] VITALS: BP 119/70
[2017-03-09] MEDS: LIDOCAINE 5% PATCH TP SCH (13:00)
[2017-03-09 16:00] VITALS: BP 124/72
--- NOTE | 2017-03-09 18:22 | Progress Note ---
DATE: March 09, 2017 The patient evaluated and events noted. Upon evaluation today, the patient is found to be sitting comfortably on his bed. He is calm and cooperative. He is less anxious and less depressed. He denies any major issues with either sleep or appetite. He denies any hallucinations or suicidal ideation at this time. He claims that he has been doing better on his current medications. ASSESSMENT: Major depressive disorder, single episode. PLAN: Continue Remeron. Continue p.r.n. Ativan. Supportive therapy. Job#: [id number]
[2017-03-09] MEDS: TRAMADOL HCL 50 MG TAB PO PRN (18:53)
[2017-03-09 20:00] VITALS: BP 120/77
[2017-03-09] MEDS: MIRTAZAPINE 15 MG TAB PO SCH (20:53)
[2017-03-09] MEDS: TIOTROPIUM 18 MCG INH POWDER INH SCH (21:00)
[2017-03-09] MEDS: LORAZEPAM 0.5 MG TAB PO PRN (22:30)
[2017-03-10] VITALS: BP 104/71
[2017-03-10] MEDS: CLONIDINE HCL 0.2 MG TAB PO SCH ×3 (01:12→10:56)
[2017-03-10] MEDS: MORPHINE SULFATE 15MG TAB CR PO SCH ×3 (01:12→12:49)
[2017-03-10 04:00] VITALS: BP 127/76
[2017-03-10] MEDS: ALBUTEROL/IPRATROPIUM 3 ML NEB NEB SCH ×3 (04:30→11:15)
[2017-03-10] MEDS: NAPROXEN 250 MG TAB PO SCH (05:05)
[2017-03-10] MEDS: METHYLPREDNISOLONE SOD SUCC 40 MG/ML VIAL IV SCH (07:30)
[2017-03-10 08:23] VITALS: BP 157/78
[2017-03-10] MEDS: TIOTROPIUM 18 MCG INH POWDER INH SCH (08:55)
[2017-03-10] MEDS: ASPIRIN 81 MG CHEW TAB PO SCH (09:28)
[2017-03-10] MEDS: AMLODIPINE BESYLATE 5 MG TAB PO SCH (09:28)
[2017-03-10] MEDS: VENLAFAXINE HCL 75 MG CAPCR PO SCH (09:28)
[2017-03-10] MEDS: POTASSIUM CHLORIDE 10 MEQ TABCR PO SCH (09:28)
[2017-03-10] MEDS: TAMSULOSIN HCL 0.4 MG CAP PO SCH (09:28)
[2017-03-10] MEDS: CALCIUM CARBONATE 500 MG CHEWABLE TABS PO SCH (09:28)
[2017-03-10] MEDS: DOCUSATE SODIUM 100 MG CAP PO SCH (09:28)
[2017-03-10] MEDS: FUROSEMIDE 40 MG TAB PO SCH (09:28)
[2017-03-10] MEDS: ASCORBIC ACID 500 MG TAB PO SCH (09:28)
[2017-03-10] MEDS: PANTOPRAZOLE SOD 40 MG TABEC PO SCH (09:28)
[2017-03-10] MEDS: ZINC SULFATE 220 MG CAP PO SCH (09:28)
[2017-03-10] MEDS: HEPARIN SOD (PORCINE) 5,000 UNIT/ML VIAL SC SCH (09:29)
[2017-03-10] MEDS: LIDOCAINE 5% PATCH TP SCH (12:49)
--- NOTE | 2017-03-13 13:59 | Pulmonary Function Test ---
DATE OF STUDY: SPIROMETRY Pre-bronchodilator values: FEV1 17%. FVC 23%. FEV1:FVC ratio 74%. Post-bronchodilator values: FEV1 18%. FVC 24%. FEV1:FVC ratio 72%. CONCLUSION: Markedly reduced FEV1 with the ratio around 74%. Findings suggestive of severe chronic obstructive pulmonary disease. Job#: [id number] EV
--- NOTE | 2017-04-06 11:23 | Consultation ---
DATE OF CONSULTATION: February 28, 2017 FOLLOWUP PAIN MANAGEMENT CONSULTATION REASON FOR FOLLOWUP: Pain management. HPI: This is a 67-year-old male with history of multiple falls, has been admitted in the hospital for the acute excruciating back pain, hip pain, and shoulder pain. He has history of hip replacement and shoulder surgery years ago. Lives alone by himself. He has chronic back pain also. Does have some home health issue, but not happy with it. Pain is 10/10 on the scale of 0 to 10, 0 being no pain and 10 being the worst pain. It is constant, aching, dull, sharp, shooting, burning, stabbing, and unbearable excruciating pain. FAMILY HISTORY: Positive for the breast cancer. SOCIAL HISTORY: He used to smoke and drink in the past. Has history of illicit drug use in the past. PAST MEDICAL HISTORY: Hepatitis and cirrhosis. PAST SURGICAL HISTORY: Hip replacement surgery, shoulder pain surgery, and back surgery. ALLERGIES: NO KNOWN DRUG ALLERGIES. MEDICATIONS: Has been under care of Dr. Russell in the past. [place] for the pain control. PHYSICAL EXAMINATION GENERAL: The patient is in pain, but not in acute distress. VITAL SIGNS: Within normal limits. HEENT: Normocephalic. NECK: Supple. LUNGS: Air entry bilaterally. HEART: Regular rate and rhythm. ABDOMEN: Soft and nontender. BACK: Has back pain. EXTREMITIES: No edema. NEUROLOGIC: Grossly nonfocal. LABORATORY DATA: Reviewed. ASSESSMENT AND PLAN: This patient admitted with history of cirrhosis of liver, pulmonary nodules, chronic obstructive pulmonary disease, having had scoliosis and chronic pain issue all the time. Pain is always 10/10 on the scale of 0 to 10, 0 being no pain and 10 being the worst pain. It is constant, aching, dull, and sharp pain. We will continue supportive care. We will start him on Dilaudid IV for the pain control and continue [place] 10 q.4h. p.r.n. for breakthrough pain. We will continue supportive care. We will follow him closely. Thank you, Dr. Sheridan, for this consultation. I will follow him with you. Job#: [id number] ADOLFO
== END 2017-03-10 15:27 | disposition home health service (06) | DRG 191 ==
LOC: ER 18:46 → ERHOLD 22:23 → MED/SURG2 23:19
PROVIDERS: ADMIT Internal Medicine; ATTEND Internal Medicine
DX: J44.1 Chronic obstructive pulmonary disease with (acute) exacerbation (principal); F32.1 Major depressive disorder, single episode, moderate; K74.60 Unspecified cirrhosis of liver; M41.9 Scoliosis, unspecified; E44.1 Mild protein-calorie malnutrition; Z99.81 Dependence on supplemental oxygen; G89.4 Chronic pain syndrome; I10 Essential (primary) hypertension; R91.8 Other nonspecific abnormal finding of lung field; Z91.81 History of falling; F41.9 Anxiety disorder, unspecified
CPT/HCPCS: 36415; 71010; 71250; 80048; 80053; 82550; 82553; 82948; 83880; 84484; 85025; 93005; 94060; 94640; 96361; 96372; 96376; 97139; 99284; J0696; J1644; J2920; J2930; J7030

== ENCOUNTER 2017-09-10 16:36 | Inpatient (IN) | payer MEDICARE ==
[~2017-09-10] VITALS: Ht 172.7 cm; Wt 74.4 kg
[~2017-09-10 16:36] MED LIST changes: +ADVAIR 250-501 EACH; +ANORO ELLIPTA INH; +ASCORBIC ACID500 MG PO; +CLONIDINE HCL0.2 MG PO; +DOK100 MG PO; +PANTOPRAZOLE SO40 MG PO; +PROAIR HFA INH8.5 GM INH; +VENLAFAXINE HC150 MG PO; +VITAMIN B-1100 M1 PO; +ZINC SULFATE220 MG PO
[2017-09-10] MEDS ORDERED: ALBUTEROL SULF 0.083% NEB SOLN 3 ML NEB NEB STA (16:48)
[2017-09-10] MEDS ORDERED: METHYLPREDNISOLONE SOD SUCC 125 MG/2ML VIAL IV STA (16:48)
[2017-09-10] MEDS ORDERED: SODIUM CHLORIDE 0.9% 500ML 500 ML IV STA (16:48)
[2017-09-10] MEDS ORDERED: IPRATROPIUM BROMIDE 0.02% 2.5 ML NEB NEB STA (16:48)
[2017-09-10 17:15] LABS: BASOPHILS # (AUTO) 0.1 (0.0-0.1); BASOPHILS % 0.5 % (0.0-1.0); EOSINOPHILS # (AUTO) 0.4 (0.0-0.4); EOSINOPHILS % 4.3 % (0.0-6.0); HEMATOCRIT 39.4 % (38.2-49.6); HEMOGLOBIN 13.1 g/dL (14.0-18.0); LYMPHOCYTES # (AUTO) 1.8 (1.0-3.2); LYMPHOCYTES % 18.8 % (18.0-39.1); MEAN CORPUSCULAR HEMOGLOBIN 28.9 pg (28-32); MEAN CORPUSCULAR HGB CONC 33.2 g/dL (31-35); MEAN CORPUSCULAR VOLUME 86.8 fL (81-99); MONOCYTES # (AUTO) 0.7 (0.2-0.8); MONOCYTES % 7.9 % (4.4-11.3); NEUTROPHILS # (AUTO) 6.3 (2.1-6.9); NEUTROPHILS % 68.3 % (38.7-80.0); PLATELET COUNT 323 x10e3/uL (140-360); RED BLOOD COUNT 4.54 x10e6/uL (4.3-5.7); RED CELL DISTRIBUTION WIDTH 15.5 % (11.7-14.4)
[2017-09-10 17:21] LABS: INR 1.23; PROTHROMBIN TIME 14.6 seconds (11.9-14.5)
[2017-09-10 17:22] LABS: PARTIAL THROMBOPLASTIN TIME 27.2 seconds (23.8-35.5)
--- NOTE | 2017-09-10 17:24 | Diagnostic Imaging Report ---
Examination: Single AP view of the chest. COMPARISON: None. INDICATION: Dyspnea DISCUSSION: Lines/tubes: None. Lungs: Emphysematous change. No pneumonia. Pleura: There is no pleural effusion or pneumothorax. Heart and mediastinum: The heart and the mediastinum are unremarkable. Bones and soft tissues: No acute bony abnormalities. IMPRESSION: Emphysematous change Signed by: Dr. Gagan Rogers M.D. on 09/10/2017 5:20 PM
[2017-09-10 17:31] LABS: ALANINE AMINOTRANSFERASE 13 IU/L (0-55); ALBUMIN 3.5 g/dL (3.5-5.0); ALBUMIN/GLOBULIN RATIO 1.3 (0.8-2.0); ALKALINE PHOSPHATASE 86 IU/L (40-150); ANION GAP 13.1 mmol/L (8-16); BLOOD UREA NITROGEN 17 mg/dL (7-26); BUN/CREATININE RATIO 23 (6-25); CALCIUM 8.6 mg/dL (8.4-10.2); CARBON DIOXIDE 24 mmol/L (22-29); CHLORIDE 108 mmol/L (98-107); CREATINE KINASE 40 IU/L (30-200); CREATININE, SERUM 0.74 mg/dL (0.72-1.25); EST GLOMERULAR FILTRATION RATE > 60 ML/MIN (60-); GLUCOSE 109 mg/dL (74-118); MAGNESIUM 2.2 MG/DL (1.3-2.1); POTASSIUM 4.1 mmol/L (3.5-5.1); SODIUM 141 mmol/L (136-145)
[2017-09-10] MEDS ORDERED: [UNRECOGNIZED DRUG - OTHER] INH (17:40)
[2017-09-10] MEDS ORDERED: SPIRONOLACTONE25 MG PO (17:40)
[2017-09-10] MEDS ORDERED: METOPROLOL TART25 MG PO (17:40)
[2017-09-10] MEDS ORDERED: PIPER-TAZ 3.375 GM 50 ML IV ONE (17:45)
[2017-09-10] MEDS ORDERED: IPRATROPIUM BROMIDE 0.02% 2.5 ML NEB NEB PRN (19:00)
[2017-09-10] MEDS ORDERED: ALBUTEROL SULF 0.083% NEB SOLN 3 ML NEB NEB PRN (19:00)
[2017-09-10] MEDS ORDERED: SODIUM CHLORIDE FLUSH 10 ML SYR INJ PRN (19:00)
[2017-09-10 19:33] LABS: BILIRUBIN,URINE NEGATIVE (NEGATIVE); CLARITY,URINE CLEAR (CLEAR); COLOR,URINE YELLOW (YELLOW); KETONES,URINE NEGATIVE (NEGATIVE); LEUKOCYTE ESTERASE ,URINE NEGATIVE (NEGATIVE); NITRITE,URINE NEGATIVE (NEGATIVE); PROTEIN,URINE DIPSTICK NEGATIVE (NEGATIVE); URINE UROBILINOGEN 0.2 mg/dL (0.2 - 1)
[2017-09-10 19:42] LABS: EPITHELIAL CELLS,URINE FEW /LPF
[2017-09-10 19:43] LABS: MUCUS,URINE FEW (RARE); RBC,URINE 0-5 /HPF (0-5); WBC,URINE (MAN) 0-5 /HPF (0-5)
[2017-09-10 20:30] VITALS: BP 170/79
[2017-09-10] MEDS ORDERED: SODIUM CHLORIDE 0.9% 250ML 250 ML ONE (21:21)
[2017-09-10] MEDS: METHYLPREDNISOLONE SOD SUCC 125 MG/2ML VIAL IV SCH (21:26)
[2017-09-10] MEDS: PIPER-TAZ 3.375 GM 50 ML IV SCH (23:10)
[2017-09-11] VITALS (7 sets, daily range): BP systolic 140–183; BP diastolic 73–98
[2017-09-11 02:31] LABS: CREATINE KINASE 48 IU/L (30-200)
[2017-09-11] MEDS: METHYLPREDNISOLONE SOD SUCC 125 MG/2ML VIAL IV SCH (05:02)
[2017-09-11] MEDS: PIPER-TAZ 3.375 GM 50 ML IV SCH ×3 (05:02→17:27)
[2017-09-11 06:22] LABS: BASOPHILS % 0.2 % (0.0-1.0); HEMATOCRIT 40.7 % (38.2-49.6); HEMOGLOBIN 13.3 g/dL (14.0-18.0); LYMPHOCYTES # (AUTO) 0.6 (1.0-3.2); LYMPHOCYTES % 11.6 % (18.0-39.1); MEAN CORPUSCULAR HGB CONC 32.7 g/dL (31-35); MEAN CORPUSCULAR VOLUME 88.9 fL (81-99); MONOCYTES # (AUTO) 0.1 (0.2-0.8); MONOCYTES % 1.1 % (4.4-11.3); NEUTROPHILS # (AUTO) 4.1 (2.1-6.9); NEUTROPHILS % 86.5 % (38.7-80.0); PLATELET COUNT 306 x10e3/uL (140-360); RED BLOOD COUNT 4.58 x10e6/uL (4.3-5.7); RED CELL DISTRIBUTION WIDTH 15.9 % (11.7-14.4)
[2017-09-11 06:41] LABS: ANION GAP 14.9 mmol/L (8-16); BLOOD UREA NITROGEN 16 mg/dL (7-26); BUN/CREATININE RATIO 21 (6-25); CALCIUM 9.1 mg/dL (8.4-10.2); CARBON DIOXIDE 25 mmol/L (22-29); CHLORIDE 108 mmol/L (98-107); CREATININE, SERUM 0.78 mg/dL (0.72-1.25); EST GLOMERULAR FILTRATION RATE > 60 ML/MIN (60-); GLUCOSE 155 mg/dL (74-118); POTASSIUM 3.9 mmol/L (3.5-5.1); SODIUM 144 mmol/L (136-145)
[2017-09-11 10:40] LABS: LYMPHOCYTES % (MANUAL) 13 % (19-48); MONOCYTES % (MANUAL) 4 % (3.4-9.0); NEUTROPHILS % (MANUAL) 83 % (40-74); PLATELET ESTIMATE ADEQUATE; PLATELET MORPHOLOGY COMMENT NORMAL; RBC MORPHOLOGY COMMENT NORMAL
[2017-09-11] MEDS ORDERED: CLONIDINE HCL 0.2 MG TAB PO PRN (10:45)
[2017-09-11 11:33] LABS: CREATINE KINASE 88 IU/L (30-200)
[2017-09-11] MEDS ORDERED: SALINE 0.65% NAS SOLN 1 SPRAY BTL PRN (12:30)
[2017-09-11] MEDS: METHYLPREDNISOLONE SOD SUCC 40 MG/ML VIAL IV SCH ×2 (13:00→21:33)
[2017-09-11] MEDS: ALBUTEROL SULFATE HFA 8GM INHALATION AEROSOL INH SCH ×2 (13:00→19:00)
[2017-09-11] MEDS: TRAMADOL HCL 50 MG TAB PO PRN ×2 (13:30→20:43)
[2017-09-11] MEDS: IPRATROPIUM BROMIDE 0.02% 2.5 ML NEB NEB SCH ×3 (14:00→22:00)
--- NOTE | 2017-09-11 14:08 | Diagnostic Imaging Report ---
EXAM: CT Chest WITHOUT contrast 09/11/2017 12:29 PM INDICATION: \S\f/u nodules \[id number] \S\1310 COMPARISON: Chest radiograph 09/10/[address] chest 03/02/2017 and 06/01/2016 TECHNIQUE: Chest was scanned utilizing a multidetector helical scanner from the lung apex through the level of the adrenal glands without administration of IV contrast. Absence of intravenous contrast decreases sensitivity for detection of lymphadenopathy and vascular pathology. Coronal and sagittal reformations were obtained. Routine protocol was performed. IV CONTRAST: None COMPLICATIONS: None RADIATION DOSE: Total DLP: 482.8 mGy*cm Estimated effective dose: (DLP x 0.015 x size factor) mSv CTDIvol has been reviewed. It is below the limits set by the Radiation Protocol Committee (RPC). FINDINGS: LINES/ TUBES: None. LUNGS AND AIRWAYS: Extensive bilateral centrilobular and paraseptal emphysema with multiple cystic changes throughout the lungs. Mild bilateral bronchiectasis with areas of peribronchial wall thickening remain stable. Reticular nodular scarring in the lingula is stable. Few bilateral solid pulmonary nodules are either stable or decreased when compared to prior exams. For example (series 3): Right lun. A 5 mm solid nodule in the right upper lobe with a well-defined margin, best seen on image 29, decreased, previously measuring 7 mm. 2. A 8 mm solid nodule in the right upper lobe with a well-defined margin, best seen on image 32, unchanged, previously measuring 8 mm. 3. A 5 mm solid nodule in the right upper lobe with a well marginated margin, best seen on image 40, unchanged, previously measuring 5 mm. Left lun. A 7 mm subpleural solid nodule in the left upper lobe with a well-defined margin, best seen on image 26, unchanged, previously measuring 7 mm. No new pulmonary nodules. PLEURA: The pleural spaces are clear. Mild focal extrapleural fat in the lateral right middle lobe on series 3, image 71 remains unchanged. HEART AND MEDIASTINUM: The thyroid gland is normal. Few nonspecific subcentimeter mediastinal lymph nodes are unchanged. The heart is normal in size. There is no pericardial effusion. Diffuse coronary artery calcifications. Ectasia of the thoracic aorta in the ascending segment measuring 4.1 cm, stable since prior exam. The main pulmonary artery is normal in caliber. UPPER ABDOMEN: Few retrocrural subcentimeter lymph nodes measuring up to 0.9 cm on series 2, image 117 are indeterminate but stable since 2017. BONES: Mild multilevel degenerative changes of the thoracic spine. SOFT TISSUES: Unremarkable. IMPRESSION: 1. Few bilateral pulmonary nodules remain either stable or decreased when compared to 06/01/2016. The most concerning nodule measures 8 mm in the right upper lobe, stable, previously measuring 8 mm compared to prior CT dated 06/01/2016. 2. Follow-up recommendation according to 2017 Fleischner Society Guidelines: CT chest without contrast in 9-12 months to complete a 24 months follow up. Reference Guidelines: http://pubs.rsna.org/doi/pdf/10.1148/radiol.2524643826 3. Stable ectasia of the ascending thoracic aorta (4.1 cm). Recommend follow-up on subsequent CT. 4. Stable diffuse bilateral emphysema. Signed by: Dr. Guadalupe Mercado M.D. on 09/11/2017 2:05 PM
[2017-09-11] MEDS: ALBUTEROL SULF 0.083% NEB SOLN 3 ML NEB NEB SCH ×3 (15:00→23:00)
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
[2017-09-11] MEDS ORDERED: DOCUSATE SODIUM 100 MG PO SCH (17:00)
[2017-09-11] MEDS: FLUTICASONE PROPIONATE NASAL SPRAY NS SCH (17:25)
[2017-09-11] MEDS: METOPROLOL TARTRATE 25 MG TAB PO SCH (17:26)
[2017-09-11] MEDS: DOCUSATE SODIUM 100 MG CAP PO SCH (17:26)
[2017-09-11] MEDS: TIOTROPIUM 18 MCG INH POWDER INH SCH (20:00)
[2017-09-12] VITALS (7 sets, daily range): BP systolic 122–185; BP diastolic 57–94
[2017-09-12] MEDS: PIPER-TAZ 3.375 GM 50 ML IV SCH ×4 (01:55→17:26)
[2017-09-12] MEDS: IPRATROPIUM BROMIDE 0.02% 2.5 ML NEB NEB SCH ×6 (02:30→22:00)
[2017-09-12] MEDS: ALBUTEROL SULF 0.083% NEB SOLN 3 ML NEB NEB SCH ×6 (02:30→23:00)
[2017-09-12] MEDS: TRAMADOL HCL 50 MG TAB PO PRN ×2 (02:45→08:50)
[2017-09-12] MEDS: SALMETEROL/FLUTICASONE 250/50 INH SCH (06:45)
[2017-09-12] MEDS: METHYLPREDNISOLONE SOD SUCC 40 MG/ML VIAL IV SCH ×2 (06:47→15:30)
[2017-09-12] MEDS: ALBUTEROL SULFATE HFA 8GM INHALATION AEROSOL INH SCH ×4 (07:00→19:45)
[2017-09-12] MEDS: PANTOPRAZOLE SOD 40 MG TABEC PO SCH (08:50)
[2017-09-12] MEDS: ASPIRIN 81 MG CHEW TAB PO SCH (09:27)
[2017-09-12] MEDS: SPIRONOLACTONE 25 MG TAB PO SCH (09:27)
[2017-09-12] MEDS: DOCUSATE SODIUM 100 MG CAP PO SCH ×2 (09:27→17:25)
[2017-09-12] MEDS: VENLAFAXINE HCL 75 MG CAPCR PO SCH (09:27)
[2017-09-12] MEDS: FLUTICASONE PROPIONATE NASAL SPRAY NS SCH ×2 (09:27→17:25)
[2017-09-12] MEDS: METOPROLOL TARTRATE 25 MG TAB PO SCH ×2 (09:28→17:26)
[2017-09-12] MEDS: FUROSEMIDE 40 MG TAB PO SCH (09:28)
[2017-09-12] MEDS: TAMSULOSIN HCL 0.4 MG CAP PO SCH (09:28)
[2017-09-12] MEDS: AMLODIPINE BESYLATE 5 MG TAB PO SCH (09:28)
[2017-09-12] MEDS: POTASSIUM CHLORIDE 10 MEQ TABCR PO SCH (09:29)
[2017-09-12] MEDS ORDERED: DIPHENOXYLATE/ATROPINE TAB PO PRN (17:15)
--- NOTE | 2017-09-12 17:51 | Progress Note ---
DATE: September 12, 2017 INTERNAL MEDICINE PROGRESS NOTE SUBJECTIVE: The patient is complaining of chronic diarrhea and so another diagnosis is chronic diarrhea. PLAN OF TREATMENT: Going to give Imodium 1 tablet every q.6 h. as needed for diarrhea. We are going to send the stool for C. difficile, stool for cultures. We are going to send stool for ova and parasite. Consult Dr. Dr. Keith Zhao for gastroenterology. Another diagnosis cirrhosis. Job#: [id number]
--- NOTE | 2017-09-12 17:56 | Progress Note ---
DATE: INTERNAL MEDICINE PROGRESS NOTE SUBJECTIVE: The patient is complaining of shortness of breath and severe back pain. PHYSICAL EXAMINATION VITAL SIGNS: Blood pressure 128/76. Temperature 98.4. Heart rate 90 per minute. Respiratory rate is 18 per minute. Oxygen saturation 98%. HEART: Regular rhythm. Normal S1and S2 sounds. LUNGS: Decreased breath sounds bilaterally. ABDOMEN: Soft. EXTREMITIES: No evidence of cyanosis, edema or trauma. LABS: On the blood work, we have BMP with sodium 144, potassium 3.9, chloride 108, CO2 25, BUN 16, creatinine 0.78. Glucose 155. On the CBC, white blood count 4.73, hemoglobin 13.3, hematocrit 40.7, platelet count 306,000. PT 14.6, PTT 27.2, INR 1.23. AST 18, ALT 13, total bilirubin 0.4, alkaline phosphatase 86. CT of the chest showed multiple nodules especially in the right lung. FINAL IMPRESSION 1. Chronic obstructive pulmonary disease exacerbation. 2. Severe back pain. 3. Hypertension. PLAN OF TREATMENT 1. Continue albuterol and Atrovent q.4 h. 2. Continue Zosyn 3.375 grams IV piggyback q.6 h. 3. Furosemide 40 mg daily. 4. Tramadol 50 mg q.6 h. 5. Albuterol q.6 h. 6. Flonase twice a day. 7. Clonidine 0.2 mg q.4 h. as needed for hypertension. 8. Amlodipine 5 mg daily. 9. Aldactone 25 mg daily. 10. Continue Advair one inhalation twice a day. 11. Continue methylprednisolone 30 mg IV piggyback q.8 h. 12. Continue metoprolol 25 mg twice a day. 13. Aspirin 81 mg daily. 14. Potassium chloride 20 mEq daily. 15. Effexor 150 mg daily. 16. Colace 100 mg twice a day. 17. Flomax 0.4 mg daily. 18. Protonix 20 mg daily 19. Spiriva 1 inhalation daily. 20. We are going to get a pain management consult. Going to start him on morphine 2 mg IV every 4 hours as needed for severe pain. Job#: [id number]
[2017-09-12] MEDS: MORPHINE SULFATE 2 MG/ML SYR IV PRN (21:00)
[2017-09-12] MEDS: TIOTROPIUM 18 MCG INH POWDER INH SCH (21:00)
[2017-09-13] VITALS (7 sets, daily range): BP systolic 144–162; BP diastolic 81–99
[2017-09-13] MEDS: METHYLPREDNISOLONE SOD SUCC 40 MG/ML VIAL IV SCH ×3 (00:14→20:51)
[2017-09-13] MEDS: PIPER-TAZ 3.375 GM 50 ML IV SCH ×4 (00:35→17:51)
[2017-09-13] MEDS: TRAMADOL HCL 50 MG TAB PO PRN (00:38)
[2017-09-13] MEDS: ALBUTEROL SULF 0.083% NEB SOLN 3 ML NEB NEB SCH ×5 (02:45→20:45)
[2017-09-13] MEDS: IPRATROPIUM BROMIDE 0.02% 2.5 ML NEB NEB SCH ×5 (02:45→20:45)
[2017-09-13] MEDS: MORPHINE SULFATE 2 MG/ML SYR IV PRN ×3 (03:49→17:42)
[2017-09-13] MEDS: SALMETEROL/FLUTICASONE 250/50 INH SCH (06:00)
[2017-09-13] MEDS: ALBUTEROL SULFATE HFA 8GM INHALATION AEROSOL INH SCH ×4 (07:00→19:00)
[2017-09-13] MEDS: DOCUSATE SODIUM 100 MG CAP PO SCH ×2 (09:00→16:13)
[2017-09-13] MEDS ORDERED: LIDOCAINE 5% PATCH TP PRN (09:15)
[2017-09-13] MEDS: AMLODIPINE BESYLATE 5 MG TAB PO SCH (09:20)
[2017-09-13] MEDS: TAMSULOSIN HCL 0.4 MG CAP PO SCH (09:20)
[2017-09-13] MEDS: METOPROLOL TARTRATE 25 MG TAB PO SCH ×2 (09:20→16:14)
[2017-09-13] MEDS: POTASSIUM CHLORIDE 10 MEQ TABCR PO SCH (09:20)
[2017-09-13] MEDS: FLUTICASONE PROPIONATE NASAL SPRAY NS SCH ×2 (09:20→16:13)
[2017-09-13] MEDS: VENLAFAXINE HCL 75 MG CAPCR PO SCH (09:20)
[2017-09-13] MEDS: FUROSEMIDE 40 MG TAB PO SCH (09:20)
[2017-09-13] MEDS: SPIRONOLACTONE 25 MG TAB PO SCH (09:20)
[2017-09-13] MEDS: PANTOPRAZOLE SOD 40 MG TABEC PO SCH (09:20)
[2017-09-13] MEDS: ASPIRIN 81 MG CHEW TAB PO SCH (09:20)
[2017-09-13] MEDS: HYDROCODONE/APAP 10MG-325MG TAB PO PRN ×3 (12:32→20:55)
--- NOTE | 2017-09-13 19:44 | Progress Note ---
DATE: September 13, 2017 INTERNAL MEDICINE PROGRESS NOTE SUBJECTIVE: A 67-year-old male who came with COPD exacerbation. He is feeling better today. PHYSICAL EXAM: VITAL SIGNS: Blood pressure 151/86. Temperature 96.6, heart rate 92 per minute. Respiratory rate 15 per minute. Oxygen saturation 96%. HEART: Regular rhythm. No murmur. No extra sounds. LUNGS: Decreased air sounds bilaterally. ABDOMEN: Soft. EXTREMITIES: Show no evidence of cyanosis, edema or trauma. On the BMP sodium 144, potassium 3.9, chloride 108, CO2 25, BUN 16, creatinine 0.78. Glucose 155. On the CBC white blood count 4.73, hemoglobin 13.3, hematocrit 40.7, platelet count 306,000. PT 14.6. PTT 27.2. INR 1.23. AST 18, ALT 13, total bilirubin 0.4, alkaline phos 86. FINAL IMPRESSION: 1. Chronic obstructive pulmonary disease exacerbation. 2. Severe back pain. 3. Hypertension. PLAN OF TREATMENT: Continue albuterol and Atrovent q.4 h. Continue Zosyn 3.375 grams IV piggyback q.6 hours. Continue Lasix 40 mg daily. Tramadol 50 mg q.6 h. as needed. Albuterol q.6 hours. Flonase 1 inhalation twice a day. [place] 1 tablet q.4 h. as needed for moderate to severe pain. Clonidine 0.2 mg q.4 h. as needed for hypertension. Amlodipine 5 mg daily. Aldactone 25 mg daily. Albuterol one inhalation twice a day. Metoprolol 25 mg twice a day. Aspirin 81 mg daily. Potassium chloride 20 mEq daily. Effexor 150 mg daily. Morphine 2 mg IV q.6 h. as needed. Solu-Medrol 30 mg IV q. 12 hours. Colace 100 mg twice a day. Flomax 0.4 mg daily. Protonix 20 mg daily. 1 inhalation daily. Lomotil 1 tablet q.6 h. as needed for diarrhea. Job#: [id number]
[2017-09-13] MEDS: TIOTROPIUM 18 MCG INH POWDER INH SCH (21:00)
[2017-09-14] VITALS (7 sets, daily range): BP systolic 151–180; BP diastolic 88–98
[2017-09-14] MEDS: IPRATROPIUM BROMIDE 0.02% 2.5 ML NEB NEB SCH ×5 (00:30→14:00)
[2017-09-14] MEDS: ALBUTEROL SULF 0.083% NEB SOLN 3 ML NEB NEB SCH ×5 (00:45→15:00)
[2017-09-14] MEDS: PIPER-TAZ 3.375 GM 50 ML IV SCH ×5 (01:03→23:50)
[2017-09-14] MEDS: MORPHINE SULFATE 2 MG/ML SYR IV PRN ×3 (01:05→21:34)
[2017-09-14] MEDS: HYDROCODONE/APAP 10MG-325MG TAB PO PRN ×3 (05:49→17:10)
[2017-09-14] MEDS: SALMETEROL/FLUTICASONE 250/50 INH SCH (07:10)
[2017-09-14] MEDS: ALBUTEROL SULFATE HFA 8GM INHALATION AEROSOL INH SCH ×3 (07:15→15:00)
[2017-09-14] MEDS: PANTOPRAZOLE SOD 40 MG TABEC PO SCH (07:30)
[2017-09-14] MEDS: FUROSEMIDE 40 MG TAB PO SCH (09:29)
[2017-09-14] MEDS: FLUTICASONE PROPIONATE NASAL SPRAY NS SCH ×2 (09:29→17:10)
[2017-09-14] MEDS: AMLODIPINE BESYLATE 5 MG TAB PO SCH (09:29)
[2017-09-14] MEDS: METOPROLOL TARTRATE 25 MG TAB PO SCH ×2 (09:29→17:10)
[2017-09-14] MEDS: METHYLPREDNISOLONE SOD SUCC 40 MG/ML VIAL IV SCH (09:29)
[2017-09-14] MEDS: ASPIRIN 81 MG CHEW TAB PO SCH (09:29)
[2017-09-14] MEDS: SPIRONOLACTONE 25 MG TAB PO SCH (09:29)
[2017-09-14] MEDS: DOCUSATE SODIUM 100 MG CAP PO SCH ×2 (09:29→17:10)
[2017-09-14] MEDS: VENLAFAXINE HCL 75 MG CAPCR PO SCH (09:29)
[2017-09-14] MEDS: TAMSULOSIN HCL 0.4 MG CAP PO SCH (09:29)
[2017-09-14] MEDS: POTASSIUM CHLORIDE 10 MEQ TABCR PO SCH (09:30)
[2017-09-14] MEDS ORDERED: PEG (High)/E-LYTE SOLN 4,000 ML BTL PO ONE (10:00)
--- NOTE | 2017-09-14 16:34 | Progress Note ---
DATE: INTERNAL MEDICINE PROGRESS NOTE SUBJECTIVE: His breathing is better today. He is getting the preparation for a colonoscopy tomorrow. PHYSICAL EXAM: VITAL SIGNS: Blood pressure 155/88. Temperature 97.5. Heart rate 73 per minute. Respiratory rate is 20 per minute. Oxygen saturation 100%. HEART: Shows regular rhythm. Normal S1 and S2 sounds. LUNGS: Show decreased breath sounds bilaterally. ABDOMEN: Soft. EXTREMITIES: Show no evidence of cyanosis, edema or trauma. On the BMP: Sodium 144, potassium 3.9, chloride 108, CO2 25, BUN 16, creatinine 0.78, glucose 155. On the CBC: White blood count 4.73, hemoglobin 13.3, hematocrit 40.7, platelet count 306,000. PT 14.6, INR 1.23, PTT 27.2. AST 18, ALT 13, total bilirubin 0.4, alkaline phosphatase 86. FINAL IMPRESSION: 1. Chronic obstructive pulmonary disease exacerbation. 2. Lung nodules. 3. Hypertension. 4. Chronic pain syndrome. 5. Cirrhosis of the liver. 6. Diarrhea. PLAN OF TREATMENT: He is going to do the colonoscopy tomorrow. Continue albuterol and Atrovent q.4 h. Continue Zosyn 3.375 grams IV piggyback q.6 h. Continue furosemide 40 mg daily. Tramadol 50 mg q.6 h. Albuterol q.6 h. Flonase 1 inhalation twice a day. [place] 1 tablet q.4 h. as needed for severe pain. Clonidine 0.2 mg q.4 h. as needed for hypertension. Amlodipine 5 mg daily. Aldactone 25 mg daily. Advair 1 inhalation twice a day. Metoprolol 25 mg twice a day. Aspirin 81 mg daily. Potassium chloride 20 mEq daily. Effexor 150 mg daily. Morphine 2 mg IV q.6 h. as needed. Colace 100 mg twice a day. Flomax 0.4 mg daily. Protonix 40 mg daily. Spiriva 1 inhalation daily. Lomotil 1 tablet q.6 h. as needed. Colonoscopy tomorrow. Patient is doing better, and breathing is much better today. Job#: [id number] EV
[2017-09-15] VITALS (7 sets, daily range): BP systolic 125–147; BP diastolic 60–90
[2017-09-15] MEDS: HYDROCODONE/APAP 10MG-325MG TAB PO PRN ×4 (00:10→23:50)
[2017-09-15] MEDS: IPRATROPIUM BROMIDE 0.02% 2.5 ML NEB NEB SCH ×6 (04:52→23:08)
[2017-09-15] MEDS: PIPER-TAZ 3.375 GM 50 ML IV SCH ×4 (05:28→23:50)
[2017-09-15] MEDS: MORPHINE SULFATE 2 MG/ML SYR IV PRN (06:16)
[2017-09-15] MEDS: ALBUTEROL SULF 0.083% NEB SOLN 3 ML NEB NEB SCH ×5 (07:00→23:08)
[2017-09-15] MEDS: PANTOPRAZOLE SOD 40 MG TABEC PO SCH (07:30)
[2017-09-15] MEDS: FLUTICASONE PROPIONATE NASAL SPRAY NS SCH ×2 (08:46→17:22)
[2017-09-15] MEDS: FUROSEMIDE 40 MG TAB PO SCH (08:46)
[2017-09-15] MEDS: VENLAFAXINE HCL 75 MG CAPCR PO SCH (08:46)
[2017-09-15] MEDS: AMLODIPINE BESYLATE 5 MG TAB PO SCH (08:46)
[2017-09-15] MEDS: ASPIRIN 81 MG CHEW TAB PO SCH (08:46)
[2017-09-15] MEDS: SPIRONOLACTONE 25 MG TAB PO SCH (08:46)
[2017-09-15] MEDS: METOPROLOL TARTRATE 25 MG TAB PO SCH ×2 (08:46→16:41)
[2017-09-15] MEDS: DOCUSATE SODIUM 100 MG CAP PO SCH ×2 (08:46→16:40)
[2017-09-15] MEDS: PREDNISONE 20 MG TAB PO SCH (08:46)
[2017-09-15] MEDS: TAMSULOSIN HCL 0.4 MG CAP PO SCH (08:46)
[2017-09-15] MEDS: POTASSIUM CHLORIDE 10 MEQ TABCR PO SCH (08:47)
[2017-09-15] MEDS: ALBUTEROL SULFATE HFA 8GM INHALATION AEROSOL INH SCH ×2 (11:00→19:17)
[2017-09-15] MEDS: SALMETEROL/FLUTICASONE 250/50 INH SCH (11:00)
[2017-09-15] MEDS ORDERED: MORPHINE SULFATE 2 MG/ML SYR IV PRN (12:00)
--- NOTE | 2017-09-15 13:29 | Progress Note ---
DATE: INTERNAL MEDICINE PROGRESS NOTE SUBJECTIVE: His breathing is better although not normal because he has severe COPD. PHYSICAL EXAM: VITAL SIGNS: Blood pressure 125/60, temperature 97.4, heart rate 66 per minute, respiratory rate is 20 per minute, oxygen saturation 95%. HEART: Shows regular rhythm. Normal S1 and S2 sounds. LUNGS: Examination shows decreased breath sounds bilaterally. ABDOMEN: Soft. EXTREMITIES: Show no evidence of cyanosis, edema or trauma. On the BMP: Sodium 144, potassium 3.9, chloride 108, CO2 25, BUN 16, creatinine 0.78. Glucose 155. On the CBC: White blood count 4.73, hemoglobin 13.3, hematocrit 40.7, platelet count 306,000. PT 14.6, INR 1.23, PTT 27.2. AST 18, ALT 13, total bilirubin 0.4, alkaline phosphatase of 86. C. difficile is negative. FINAL IMPRESSION: 1. Chronic obstructive pulmonary disease exacerbation. 2. Hypertension. 3. Cirrhosis. 4. Chronic pain syndrome. PLAN OF TREATMENT: Continue with albuterol and Atrovent q.4 h. Zosyn 3.375 grams IV q.6 h. Continue with furosemide 40 mg daily. Tramadol 50 mg q.6 h. as needed. Albuterol q.6 h. around the clock. Flonase 1 inhalation twice a day. Lidoderm patch 12 hours on, 12 hours off as needed for pain. Clonidine 0.2 mg q.4 h. as needed for hypertension. Amlodipine 5 mg daily. Aldactone 25 mg daily. Advair 1 inhalation twice a day. Prednisone 20 mg daily. Metoprolol 25 mg twice a day. Aspirin 81 mg daily. Potassium chloride 20 mEq daily. Effexor 150 mg daily. Lomotil q.6 h. as needed. Morphine 4 mg IV q.6 h. as needed for severe pain only. Colace 100 mg twice a day. Flomax 0.4 mg daily. Protonix 20 mg daily. Spiriva 1 inhalation daily. Guy 1 tablet q.4 h. as needed for pain. For probably discharge tomorrow. Job#: [id number] EV
[2017-09-15] MEDS: MORPHINE SULFATE INJ 4 MG/ML INJ IV PRN ×2 (13:49→21:10)
[2017-09-15] MEDS: TIOTROPIUM 18 MCG INH POWDER INH SCH (19:17)
--- NOTE | 2017-09-15 20:41 | Diagnostic Imaging Report ---
Liver-Spleen Scan with SPECT Clinical information: Report: Following intravenous administration of 8.0 mCi of Tc-99 and sulfur colloid, images of the liver and spleen were obtained in multiple projections. Tomographic images of the upper abdomen were also obtained. The liver is mild to moderately decreased in size. The spleen appears normal in size. Distribution of tracer activity is homogeneous throughout the hepatic and splenic parenchyma and no focal abnormalities are identified on the tomographic images in either the liver or spleen. Increased tracer activity seen in the bone marrow and lungs. There is no apparent shift of tracer activity from the hepatic parenchyma to the spleen. Impression: Abnormal liver-spleen scan 1. No scan evidence of hepatic or splenic masses. 2. Colloid shift to the marrow and lungs consistent with poor liver function. Scan findings consistent with cirrhosis 3. Hypersplenism is not present. Signed by: Dr. Aundrea Coker M.D. on 09/15/2017 8:37 PM
[2017-09-16] MEDS ORDERED: CITRATE OF MAGNESIA 300ML BOTTLE PO ONE ×2 (00:15→01:15)
[2017-09-16 00:29] VITALS: BP 130/68
[2017-09-16] MEDS: IPRATROPIUM BROMIDE 0.02% 2.5 ML NEB NEB SCH ×4 (03:10→15:15)
[2017-09-16] MEDS: ALBUTEROL SULF 0.083% NEB SOLN 3 ML NEB NEB SCH ×4 (03:10→15:15)
[2017-09-16] MEDS: MORPHINE SULFATE INJ 4 MG/ML INJ IV PRN ×2 (03:17→15:27)
[2017-09-16 04:23] VITALS: BP_SYST 137; BP_SYST 142; BP_DIAS 73; BP_DIAS 86
[2017-09-16] MEDS: PIPER-TAZ 3.375 GM 50 ML IV SCH ×2 (05:19→12:53)
[2017-09-16] MEDS: ALBUTEROL SULFATE HFA 8GM INHALATION AEROSOL INH SCH ×3 (07:00→15:00)
[2017-09-16] MEDS: SALMETEROL/FLUTICASONE 250/50 INH SCH (07:13)
[2017-09-16 08:30] VITALS: BP 145/80
[2017-09-16 08:56] VITALS: BP 142/72
[2017-09-16] MEDS: AMLODIPINE BESYLATE 5 MG TAB PO SCH (09:00)
[2017-09-16] MEDS: PREDNISONE 20 MG TAB PO SCH (09:00)
[2017-09-16] MEDS: VENLAFAXINE HCL 75 MG CAPCR PO SCH (09:00)
[2017-09-16] MEDS: METOPROLOL TARTRATE 25 MG TAB PO SCH ×2 (09:00→17:03)
[2017-09-16] MEDS: DOCUSATE SODIUM 100 MG CAP PO SCH ×2 (09:00→17:00)
[2017-09-16] MEDS: FLUTICASONE PROPIONATE NASAL SPRAY NS SCH ×2 (09:00→17:03)
[2017-09-16] MEDS: TAMSULOSIN HCL 0.4 MG CAP PO SCH (09:00)
[2017-09-16] MEDS: SPIRONOLACTONE 25 MG TAB PO SCH (09:00)
[2017-09-16] MEDS: FUROSEMIDE 40 MG TAB PO SCH (09:00)
[2017-09-16] MEDS: PANTOPRAZOLE SOD 40 MG TABEC PO SCH (09:00)
[2017-09-16] MEDS: ASPIRIN 81 MG CHEW TAB PO SCH (09:00)
[2017-09-16 12:19] VITALS: BP 137/89
[2017-09-16] MEDS: POTASSIUM CHLORIDE 10 MEQ TABCR PO SCH (12:31)
--- NOTE | 2017-09-16 13:05 | Operative Report ---
DATE OF PROCEDURE: September 16, 2017 REFERRING PHYSICIAN: Dr. Cornelius Tubbs. PROCEDURE PERFORMED: Colonoscopy and polypectomy. INDICATIONS FOR COLONOSCOPY: Chronic diarrhea, weight loss. MEDICATION: Patient was done under MAC. Please see anesthesiologist's note. PROCEDURE: With the patient in the left lateral decubitus position, the flexible fiberoptic Olympus colonoscope was inserted into the rectum with ease and advanced all the way to the cecum. An approximately 8 mm sessile polyp was snared from the cecum, and the polypectomy site was hemoclipped. Of note, patient had diverticular disease throughout. The ileocecal valve was intubated, and the scope was advanced into the terminal ileum. Biopsies were obtained. The scope was then withdrawn back into the colon. It was then withdrawn slowly. One polyp was snared from the ascending colon. The transverse and descending, other than for diverticular disease, appeared to be within normal limits. Two large polyps up to 1.2 cm were snared from the sigmoid colon, and two minute polyps were hot biopsied from the rectum. The mucosa overlying the sigmoid and the rectum revealed some patchy mild inflammatory changes, and biopsies were obtained. The scope was then retroflexed into the distal rectum. Small internal hemorrhoids were noted, none of which was actively bleeding. The scope was then straightened out. The rectosigmoid area as well as the distal rectal area were decompressed. The scope was subsequently withdrawn after securing an adequate stool specimen that was sent for the appropriate stool studies. Patient tolerated the procedure well. IMPRESSION: 1. Pandiverticulosis. 2. Cecal polyp snared and polypectomy site prophylactically hemoclipped. 3. Ascending colon polyp snared. 4. Sigmoid colon polyps times 2 snared. 5. Proctosigmoiditis, mild. Biopsies obtained. 6. Rectal polyps times 2 hot biopsied. 7. Internal hemorrhoids, none actively bleeding. PLAN: Follow up histology. Follow up stool studies. Patient will need a followup colonoscopy in 2 to 3 years. Job#: [id number] EV cc:CORNELIUS TUBBS MD
[2017-09-16 13:42] LABS: C DIFFICILE TOXIN A&B AMP PROB NEGATIVE (NEGATIVE); WBC,FECAL (FECAL LACTOFERRIN) NEGATIVE (NEGATIVE)
[2017-09-16] MEDS ORDERED: KETAMINE HCL INJ 50 MG/ML 10 ML VIAL ONE (14:37)
[2017-09-16] MEDS ORDERED: MIDAZOLAM HCL 2 MG/2 ML VIAL ONE (14:37)
[2017-09-16] MEDS ORDERED: FENTANYL CITRATE/PF 100MCG/2 ML INJ ONE (14:37)
[2017-09-16] MEDS ORDERED: PROPOFOL IV EMULSION 10 MG/ML 50 ML VIAL ONE (14:59)
[2017-09-16] MEDS ORDERED: GLUCAGON FOR INJ 1 MG VIAL ONE (14:59)
[2017-09-16] MEDS ORDERED: LIDOCAINE HCL 2% LOCAL INJ 5 ML SDV VIAL INJ ONE (14:59)
[2017-09-16] MEDS ORDERED: HYOSCYAMINE SULFATE 0.5 MG/ML AMP ONE (14:59)
[2017-09-16 16:32] VITALS: BP 128/78
[2017-09-16] MEDS ORDERED: FENTANYL 25 MCG/HR PATCH TOP SCH (17:00)
--- NOTE | 2017-09-16 19:33 | Discharge Summary ---
HISTORY OF PRESENT ILLNESS: A 67-year-old male with a past medical history positive for COPD, hypertension, cirrhosis of the liver, came here with COPD exacerbation. Patient is doing better today. He is able to go home. He had a colonoscopy done due to chronic diarrhea. He was found to have pandiverticulosis, cecal polyps snared and polypectomy site prophylactically hemoclipped. Ascending colon polyps snared. Sigmoid colon polyps times 2 snared and proctosigmoiditis was found. Biopsy was obtained. Two rectal polyps were biopsied. He had hemorrhoids founds and no active bleeding. Patient is going home today. PHYSICAL EXAMINATION VITALS: Blood pressure 137/89, temperature 97.6, heart rate 76 per minute, respiratory rate is 20 per minute, oxygen saturation 96%. HEART: Shows regular rhythm. Normal S1 and S2 sounds. LUNGS: Showed decreased breath sounds bilaterally. ABDOMEN: Soft. Nontender and no distended. No visceromegaly. EXTREMITIES: Show no evidence of cyanosis or trauma. On the BMP, sodium 144, potassium 3.9, chloride 108, CO2 25, BUN 16, creatinine 0.78, glucose 155. On the CBC, white blood count 4.73, hemoglobin 13.3, hematocrit 40.7, and platelet count 306,000. PT 14.6, INR 1.23 and PTT 27.2. AST 18, ALT 13, total bilirubin 0.4, alkaline phosphatase 86. FINAL IMPRESSION 1. Chronic obstructive pulmonary disease exacerbation. 2. Cirrhosis of the liver. 3. Chronic pain syndrome. 4. Chronic diarrhea. PLAN OF TREATMENT: We are going to continue with albuterol and Atrovent q.4 h. as needed for shortness of breath. Medrol Dosepak to take as directed. Furosemide 40 mg daily. Flonase 1 inhalation daily twice a day. Amlodipine 5 mg daily. Aldactone 25 mg daily. He is taking metoprolol 25 mg twice a day. Aspirin 81 mg daily. Potassium chloride 20 mEq daily. Effexor XR 150 mg daily. Continue with Colace 100 mg twice a day. Flomax 0.4 mg daily. Protonix 20 mg daily. Spiriva 1 inhalation daily. We are going to prescribe Tylenol No. 3 one tablet every 4 hours as needed for pain, 40 tablets with no refills. He is to follow up with pain management. Continue oxygen at home. CORNELIUS TUBBS MD Job#: [id number] [facility]
== END 2017-09-16 18:43 | disposition home or self-care (01) | DRG 192 ==
LOC: ER 16:36 → ERHOLD 19:18 → IMCU 19:30 → OBSVTOIN 09-12 16:59 → MED/SURG2 09-12 20:59
PROVIDERS: ADMIT Internal Medicine; ATTEND Internal Medicine
PROC: 02HV33Z Insertion of Infusion Device into Superior Vena Cava, Percutaneous Approach (ICD-10-PCS; 2017-09-14)
PROC: 0DBK8ZX Excision of Ascending Colon, Via Natural or Artificial Opening Endoscopic, Diagnostic (ICD-10-PCS; principal; 2017-09-16 10:22)
PROC: 0DBP8ZX Excision of Rectum, Via Natural or Artificial Opening Endoscopic, Diagnostic (ICD-10-PCS; 2017-09-16 10:22)
PROC: 0DBH8ZX Excision of Cecum, Via Natural or Artificial Opening Endoscopic, Diagnostic (ICD-10-PCS; 2017-09-16 10:22)
CPT/HCPCS: 36415; 36568; 45378; 45380; 45384; 45385; 71045; 71250; 78215; 80048; 80053; 81001; 82270; 82550; 82553; 83630; 83735; 83880; 83993; 84152; 84484; 85025; 85610; 85730; 87045; 87177; 87328; 87493; 87521; 88305; 93005; 94640; 99284; A9541; G0378; J1610; J1980; J2001; J2250; J2270; J2543; J2920; J2930; J7040; J7050